=== PATIENT | female | born 1970 | race Caucasian/White ===

== ENCOUNTER 2024-08-05 12:42 | Emergency (ER) | payer MEDICARE, SELFPAY ==
--- NOTE | ~2024-08-05 | XR_ITS ---
[id number] Ordering provider: Ras Be MD History: . FALL DOWN STAIRS TODAY, PAIN IN SHOULDER AND RIBS . Comparison: None. FINDINGS: BONES: Fracture of the right third, fourth, 5th and sixth ribs is noted. Fracture right scapula is no adia. Other occult rib fractures are not excluded. LUNGS: No effusions or infiltrates. No pneumothorax. SOFT TISSUES: Normal. IMPRESSION: Multiple rib fractures in the right hemithorax. No evidence of pneumothorax or significant atelectasis. Reviewed, dictated and finalized at location A.
--- NOTE | ~2024-08-05 | XR_ITS ---
XR humerus RT Ordering provider: Ras Be MD History: . FALL DOWN STAIRS TODAY, PAIN IN SHOULDER AND RIBS . Comparison: None FINDINGS: BONES: Bony fragment is seen in the area of the scapula with lucencies suggestive of a fracture. JOINT SPACES: Normal. SOFT TISSUES: Normal. IMPRESSION: Bony fragment in the area of the scapula with a lucency suggestive of a fracture. No fractures seen in the humerus. Reviewed, dictated and finalized at location A. IMPRESSION: Bony fragment in the area of the scapula with a lucency suggestive of a fractur e. No fractures seen in the humerus.
--- NOTE | ~2024-08-05 | XR_ITS ---
XR shoulder RT min 2V Ordering provider: Ras Be MD History: . FALL DOWN STAIRS TODAY, PAIN IN SHOULDER AND RIBS . Comparison: None. FINDINGS: BONES: Fracture right scapula is noted. Displaced distal fragment posteriorly. Small bony fragment se en anteriorly. JOINT SPACES: The acromioclavicular joint is normal. The glenohumeral joint is normal. SOFT TISSUES: Normal. IMPRESSION: Comminuted Fracture of the right scapula. No other fractures seen. Reviewed, dictated and finalized at location A.
[2024-08-05 12:48] VITALS: BP 93/54; PULSE 72; RESP 16; TEMP 36.6; O2SAT 95
--- NOTE | 2024-08-05 14:38 | ED.GENADULT ---
HPI - General Adult General Chief complaint: Fall Stated complaint: fall down stairs, r shoulder pain Time Seen by Provider: 08/05/24 14:26 History of Present Illness HPI narrative: 54-year-old female presenting to the emergency department for evaluation after having a ground level fall. Patient did injure her shoulder plan of right-sided pain. Patient states she did not strike her head had no loss of consciousness. Related Data Allergies Allergy/AdvReac Type Severity Reaction Status Date / Time morphine Allergy Unknown Verified 08/05/24 15:02 Review of Systems Review of Systems: All systems reviewed & are unremarkable except as noted in HPI and below Exam Narrative: APPEARANCE: Uncomfortable due to pain HEAD: normocephalic, atraumatic. EYES: PERRLA/EOMI, conjunctivae clear. NOSE: Normal no drainage EARS:TMS clear with good light reflex. THROAT: Pharynx clear, no exudate. NECK: Supple. No adenopathy, no masses. RESPIRATORY: Airway patent, respirations nonlabored. Clear to auscultation bilaterally, no rales, rhonchi, wheezing. CARDIOVASCULAR: Regular rate and rhythm without murmurs rubs or gallops. ABDOMINAL: Soft, nontender, nondistended, normal bowel sounds MUSCULOSKELETAL: Right upper arm tenderness to palpation, tenderness to right shoulder, tenderness to right chest NEURO: Alert. Cranial nerves II through XII intact. Good gait. Good coordination SKIN: Warm, dry. Normal Color Course Vital Signs Vital signs: Vital Signs Temperature 97.9 F 08/05/24 12:48 Pulse Rate 72 08/05/24 12:48 Respiratory Rate 16 08/05/24 12:48 Blood Pressure 93/54 L 08/05/24 12:48 Pulse Oximetry 95 08/05/24 12:48 Oxygen Delivery Room Air 08/05/24 12:48 Temperature 96.9 F L 08/05/24 16:58 Pulse Rate 73 08/05/24 16:58 Respiratory Rate 16 08/05/24 16:58 Blood Pressure 119/86 08/05/24 16:58 Pulse Oximetry 97 08/05/24 16:58 Oxygen Delivery Room Air 08/05/24 12:48 Medical Decision Making [place] Narrative Medical decision making narrative: 54-year-old female presenting to the emergency department for right shoulder pain and right-sided rib pain. Patient does have a scapular fracture. Patient also has some rib fractures. Patient denies any difficulty breathing. Patient was placed in a shoulder immobilizer and provided medications for pain control. Patient was offered admission due to her number of rib fractures and patient prefers to be discharged home. Patient was also provided a symptoms spirometer along with pain medications for home. Patient states that her home is in [facility]. and patient will be heading back there tomorrow. Differential Diagnosis Differential Diagnosis: Pneumonia, pneumothorax, pulmonary contusion, shoulder fracture, rib fracture, humerus fracture, intracranial injury Vital Signs Vital Signs: Vital Signs Temperature 97.9 F 08/05/24 12:48 Pulse Rate 72 08/05/24 12:48 Respiratory Rate 16 08/05/24 12:48 Blood Pressure 93/54 L 08/05/24 12:48 Pulse Oximetry 95 08/05/24 12:48 Oxygen Delivery Room Air 08/05/24 12:48 Temperature 96.9 F L 08/05/24 16:58 Pulse Rate 73 08/05/24 16:58 Respiratory Rate 16 08/05/24 16:58 Blood Pressure 119/86 08/05/24 16:58 Pulse Oximetry 97 08/05/24 16:58 Oxygen Delivery Room Air 08/05/24 12:48 Imaging Data Radiologist's impression: Impressions Humerus X-Ray 08/05/24 15:07 IMPRESSION: Bony fragment in the area of the scapula with a lucency suggestive of a fracture. No fractures seen in the humerus. Shoulder X-Ray 08/05/24 15:12 IMPRESSION: Comminuted Fracture of the right scapula. No other fractures seen. Ribs w/Chest X-Ray 08/05/24 15:16 IMPRESSION: Multiple rib fractures in the right hemithorax. No evidence of pneumothorax or significant atelectasis. Discharge Plan Discharge Clinical Impression: Fracture of scapular body, Multiple fra
[2024-08-05] MEDS: Please add drug allergy info to patient profile. 1 EACH XX (15:03)
[2024-08-05] MEDS: CYCLOBENZAPRINE HCL 10 MG TABLET PO (15:04)
[2024-08-05] MEDS: HYDROcodone/acetaminophen (*CRX) 10-325 MG TABLET 1 TAB PO (15:04)
[2024-08-05 16:58] VITALS: BP 119/86; PULSE 73; RESP 16; TEMP 36.1; O2SAT 97
== END 2024-08-05 17:00 | disposition home or self-care (01) ==
PROVIDERS: Emergency Provider Emergency Medicine
DX: S22.41XA Multiple fractures of ribs, right side, initial encounter for closed fracture (principal); S42.111A Displaced fracture of body of scapula, right shoulder, initial encounter for closed fracture; W10.9XXA Fall (on) (from) unspecified stairs and steps, initial encounter
CPT/HCPCS: 71101; 73030; 73060; 99284; A9270